=== PATIENT | female | born 1955 | race Hispanic/Latino ===

== ENCOUNTER 2020-06-17 18:30 | Emergency (ER) | payer OTHER ==
--- OUTSIDE RECORDS SUMMARY | 2020-06-17 18:32 | XMS REPORT | Continuity of Care Document ---
:1955 Author Organization [facility] t Address [address] [place] [address] Care Team Providers Name Role Phone TEJAS Attending Clinician Unavailable DR PITA Attending Clinician Unavailable MONA Attending Clinician Unavailable DR FELIPE Attending Clinician Unavailable DR PITA Admitting Clinician Unavailable MONA Admitting Clinician Unavailable DR FELIPE Admitting Clinician Unavailable Problems This patient has no known problems. Allergies, Adverse Reactions, Alerts This patient has no known allergies or adverse reactions. Medications This patient has no known medications. Procedures This patient has no known procedures. Encounters Start End Encounter Admission Attending Care Care Encounter Source Date/Time Date/Time Type Type Clinicians Facility Department ID 2020-03-09 2020-03-09 Outpatient [facility] [id number] Access 08:52:00 08:52:00 [facility] 2020-03-03 2020-03-03 Outpatient [facility] [id number] Access 11:42:00 11:42:00 [facility] 2020-02-24 2020-02-24 Outpatient [facility] [id number] Access 09:45:00 09:45:00 [facility] 2020-01-21 2020-01-21 Outpatient [facility] [id number] Access 09:50:00 09:50:00 [facility] 2020-01-13 2020-01-13 [facility] [id number] Access 13:39:00 13:39:00 [facility] 2018-11-01 2018-11-01 Outpatient E [facility] [id number] [place] 00:19:00 00:41:00 [facility] 2018-10-29 2018-10-29 Outpatient Florentino DUNN [facility] RAD [id number] [place] 12:30:00 23:59:00 [facility] 2018-05-16 2018-05-16 Outpatient Florentino DUNN [facility] RAD [id number] [place] 09:54:00 23:59:00 [facility] 2018-02-07 2018-02-07 Outpatient Jag WANG [facility] ECC [id number] [place] 15:43:00 17:40:00 [facility] Results Test Description Test Time Test Comments Results Result [facility] e Comments XR SHOULDER RIGHT 2018-10-29 Right shoulder, 3 3 VIEWS 13:09:19 viewsLocation Code: [id number] HISTORY: [id number]: OsteoarthritisCOMMENTS: AP views in internal and external rotation along with a transscapularY view of the the right shoulder were obtained. There is no acute fracture ormalalignment. Mild glenohumeral and acromioclavicular arthrosis noted. Surgicalclips in the right axilla. The soft tissues are otherwise unremarkable.IMPRESSION: No acute abnormality. Mild arthrosis. XR SPINE LUMBAR 2018-05-16 HISTORY: Low back AP & LAT 10:44:19 painLocation code: D4EXAM: LUMBAR SPINE, 3 VIEWS.COMPARISON: NoneFINDINGS: Five nonrib-bearing lumbar vertebrae are identified. No acutefracture, posttraumatic subluxation, osteolytic or osteoblastic lesion.Moderate diffuse spondylosis and mild diffuse facet joint arthropathy arepresent. Multilevel disc space narrowing is seen, most prominent at the L4-5level. No spondylolysis or spondylolisthesis. Minor dextroscoliosis could bepositional.IMPRESSION: Degenerative disc disease, spondylosis, and facet jointarthropathy. No acute bony abnormality. XR SHOULDER RIGHT 2018-05-16 HISTORY: Female, 63 years 2 VIEWS 10:42:55 of age. PAINLocation code: D4EXAM: RIGHT SHOULDER, 3 VIEWS.COMPARISON: NoneFINDINGS: Mild chronic arthritis is seen at the glenohumeral andacromioclavicular joints manifest by joint space narrowing and marginalspurring. There is no acute fracture or dislocation. No osteolytic orosteoblastic lesions. Incidental note made of surgical clips in the rightaxilla.IMPRESSION: Mild arthritis. No acute bony abnormalities. XR KNEE RIGHT 3 2018-05-16 HISTORY: Female, 63 years VIEWS 10:41:28 of age. KNEE PAINLocation code: D4EXAM: RIGHT KNEE, 3 VIEWSCOMPARISON: NoneFINDINGS: No significant soft tissue swelling, joint effusion, or arthropathy.No acute fracture, dislocation, osteolytic or osteoblastic lesion.IMPRESSION: Normal right knee x-rays. TROPONIN I i-STAT OW 2018-02-07 17:01:00 Test Item Value Reference Range Interpretation Comme nts TROPONIN I (test code = A84) 0.000 ng/mL 0.000-0.045 CHEM8+ i-STAT OW2018-02-07 16:44:00 Test Item Value Reference Range Interpretation Comments SODIUM (test code = BREN) 139 mmol/L 138-146 POTASSIUM (test code = KI) 3.8 mmol/L 3.5-4.9 CHLORIDE (test code = CLI) 101 mmol/L 98-109 CA IONIZED (test code = ICAI) 1.20 mmol/L 1.12-1.32 GLUCOSE (test code = GLUI) 212 mg/dL 75-100 H TCO2 (test code = TCO2) 27 mmol/L 24-29 BUN (test code = BUN1) 15 mg/dL 8-26 CREATININE (test code = CREAI) 0.6 mg/dL 0.6-1.3 ANION GAP (test code = GANG) 16.0 mmol/L HGB (test code = MHB) 13.3 g/dL 12.0-17.0 HCT (test code = MHCT) 39.0 % 38.0-51.0 CBC (INCLUDES AUTOMATED DIFFERENTIAL) *2018-02-07 16:43:00 Test Item Value Reference Range Interpretation Comments WBC (test code = WBC) 6.3 10\S\3/uL 4.5-11.0 RBC (test code = RBC) 4.22 10\S\6/uL 4.20-5.60 HGB (test code = HBG) 13.4 g/dL 12.0-15.5 HCT (test code = HCT) 39.3 % 35.0-44.0 MCV (test code = MCV) 93.1 fL 81.0-99.0 MCH (test code = MCH) 31.8 pg 27.0-31.0 H MCHC (test code = MCHC) 34.1 g/dL 32.0-36.0 RDW (test code = RDW) 12.4 % 11.5-14.5 PLT (test code = PLT) 224 10\S\3/uL 130-400 MPV (test code = OMPV) 7.4 fL 6.2-10.2 NEUTROP # (test code = NE#) 4.3 10\S\3/uL 1.6-8.0 LYMPH # (test code = LY#) 1.6 10\S\3/uL 1.1-3.5 MID # (test code = GMID#) 0.4 10\S\3/uL 0.0-1.1 GRA % (test code = GRA%) 68.7 % 35.0-73.0 LYMPH % (test code = GLY%) 24.9 % 20.0-55.0 MID % (test code = GMID%) 6.4 % 0.0-10.0
[2020-06-17] MEDS ORDERED: MECLIZINE HCL 12.5 MG TAB ONE (22:04)
[2020-06-17 22:13] LABS: ALT/SGPT 31 U/L (12-78); AST/SGOT 13 U/L (15-37); Albumin 4.1 g/dL (3.4-5.0); Alkaline Phosphatase 125 U/L (45-117); BUN Blood Urea Nitrogen 18 mg/dL (7-18); Bicarbonate 25 mmol/L (21-32); Bilirubin Direct < 0.1 mg/dL (0-0.2); Bilirubin Total 0.3 mg/dL (0.2-1.0); Glucose Level 144 mg/dL (74-106); Magnesium 1.9 mg/dL (1.8-2.4); NT PRO-BNP 40 pg/mL (<125); Potassium 3.9 mmol/L (3.5-5.1); Protein, Total 8.1 g/dL (6.4-8.2); Sodium Level 140 mmol/L (136-145); Troponin (Emerg Dept Use Only) < 0.02 ng/mL (0.0-0.045)
[2020-06-17 22:14] LABS: Absolute Lymphocytes (CBC) 2.3 K/uL (0.7-4.9); Basophils % 0.8 % (0-1.3); Hematocrit 37.6 % (36.0-45.0); Lymphocytes % 30.2 % (15.3-44.8); MPV 8.4 fL (7.6-11.3); RBC Red Blood Cell Count 4.17 M/uL (3.86-4.86)
[2020-06-17 22:20] LABS: Protime INR 0.87
--- NOTE | 2020-06-17 23:42 | ER ---
Nurse's Notes [facility] Name: Andreina Cotto Age: 65 yrs Sex: Female : 1955 Arrival Date: 06/17/2020 Time: 18:32 Bed 16 Private MD: Diagnosis: Dizziness and giddiness Presentation: 06/17 19:03 Chief complaint: Patient states: Have not been feeling right. Been dizzy for about 4 ca1 days. Had a bad episode last night , I thought I was going to faint. Coronavirus screen: Client denies travel out of the [place] in the last 14 days. At this time, the client does not indicate any symptoms associated with coronavirus-19. Ebola Screen: Patient negative for fever greater than or equal to 101.5 degrees Fahrenheit, and additional compatible Ebola Virus Disease symptoms Patient denies exposure to infectious person. Patient denies travel to an Ebola-affected area in the 21 days before illness onset. No symptoms or risks identified at this time. Initial Sepsis Screen: Does the patient meet any 2 criteria? No. Patient's initial sepsis screen is negative. Does the patient have a suspected source of infection? No. Patient's initial sepsis screen is negative. Risk Assessment: Do you want to hurt yourself or someone else? Patient reports no desire to harm self or others. Onset of symptoms was June 17, 2020. 19:03 Method Of Arrival: Ambulatory ca1 19:03 Acuity: RAFY 3 ca1 Historical: - Allergies: 19:07 No Known Allergies; ca1 - Home Meds: 19:07 Metformin Oral [Active]; Lisinopril Oral [Active]; amlodipine oral [Active]; ca1 - PMHx: 19:07 Hypertension; Diabetes - NIDDM; ca1 - PSHx: 19:07 ; Cholecystectomy; ca1 - Immunization history:: Pneumococcal vaccine is not up to date, Flu vaccine is not up to date. - Social history:: Smoking status: Patient denies any tobacco usage or history of. Screenin:53 Abuse screen: Denies threats or abuse. Nutritional screening: No deficits noted. fu Tuberculosis screening: No symptoms or risk factors identified. Fall Risk None identified. Assessment: 20:30 General: Appears in no apparent distress. Behavior is calm, cooperative, appropriate fu for age, Denies fever, feeling ill, fatigue, chills. Pain: Denies pain. Neuro: Level of Consciousness is awake, alert, obeys commands, Oriented to person, place, time, situation, Moves all extremities. Gait is steady, Speech is normal, Facial symmetry appears normal, Reports dizziness. Cardiovascular: Denies chest pain, nausea, vomiting. Respiratory: Airway is patent Respiratory effort is even, unlabored, Respiratory pattern is regular. GI: No signs and/or symptoms were reported involving the gastrointestinal system. : No signs and/or symptoms were reported regarding the genitourinary system. EENT: No signs and/or symptoms were reported regarding the EENT system. Derm: Skin is intact. 22:10 Reassessment: Patient wanting to take 25mg of Meclizine instead of 50mg, PA notified. fu 06/18 00:00 Reassessment: Patient and/or family updated on plan of care and expected duration. Pain fu level reassessed. Patient is alert, oriented x 3, equal unlabored respirations, skin warm/dry/pink. Vital Signs: 06/17 19:03 BP 178 / 95; Pulse 103; Resp 16 S; Temp 98.8(TE); Pulse Ox 99% on R/A; Weight 72.12 kg ca1 (R); Height 5 ft. 3 in. (160.02 cm) (R); Pain 0/10; 21:30 BP 156 / 95; Pulse 88; Resp 18; Pulse Ox 96% on R/A; Pain 0/10; fu 22:30 BP 148 / 80; Pulse 91; Resp 20; Pulse Ox 96% on R/A; Pain 0/10; fu 06/18 00:00 Pulse 91; Resp 21; Pulse Ox 98% on R/A; Pain 0/10; fu 06/17 19:03 Body Mass Index 28.17 (72.12 kg, 160.02 cm) ca1 ED Course: 06/17 18:32 Patient arrived in ED. as 19:05 Triage completed. ca1 19:07 Arm band placed on right wrist. ca1 21:12 Chacorta Cortez PA is PHCP. [place] 21:12 Patel Mohan MD is Attending Physician. [facility] 21:24 Tahir Lara, LAKIA is Primary Nurse. fu 21:35 Inserted saline lock: 20 gauge in left forearm, using aseptic technique. Blood fu collected. 21:40 Basic Metabolic Panel Sent. fu 21:40 Troponin (emerg Dept Use Only) Sent. fu 21:40 Basic Metabolic Panel Sent. fu 21:40 CBC with Diff Sent. fu 21:40 LFT's Sent. fu 21:40 Magnesium Sent. fu 21:40 NT PRO-BNP Sent. fu 21:41 PT-INR Sent. fu 21:59 CT Head Brain wo Cont In Process Unspecified. EDMS 21:59 CT Head Angio In Process Unspecified. EDMS 21:59 CT Neck Angio In Process Unspecified. EDMS 21:59 XRAY Chest (1 view) In Process Unspecified. EDMS 22:54 Patient has correct armband on for positive identification. Placed in gown. Bed in low fu position. Side rails up X 1. radiation monitor on. Pulse ox on. NIBP on. 23:41 Benito Barajas MD is Referral Physician. [facility] 06/18 00:20 IV discontinued, bleeding controlled, Pressure dressing applied. fu 00:20 No provider procedures requiring assistance completed. fu Administered Medications: 06/17 22:10 Drug: Meclizine 25 mg Route: PO; fu 22:52 Follow up: Response: No adverse reaction fu Outcome: 23:41 Discharge ordered by MD. [facility] 06/18 00:20 Discharged to home via wheelchair. fu Condition: stable Discharge instructions given to patient, Instructed on discharge instructions, follow up and referral plans. Demonstrated understanding of instructions, follow-up care, Prescriptions given X 1. 00:33 Patient left the ED. fu Signatures: Dispatcher [employer] EDKY Chacorta Cortez PA PA jmm Martinez, Amelia as Umadhay, Felix, RN RN Onelia Martin RN RN ca1
--- NOTE | 2020-06-17 23:42 | EDPHYS ---
Physician Documentation [facility] Name: Andreina Cotto Age: 65 yrs Sex: Female : 1955 Arrival Date: 06/17/2020 Time: 18:32 Bed 16 Private MD: ALFREDO Physician Patel Mohan HPI: 06/17 21:27 This 65 yrs old Female presents to ER via Ambulatory with complaints of jmm Dizziness. 21:27 The patient presents with dizziness, sense of spinning. Onset: The symptoms/episode jmm began/occurred acutely, 4 day(s) ago. Modifying factors: The symptoms are alleviated by holding head still, lying down, the symptoms are aggravated by movement of head, standing up, changing position. Associated signs and symptoms: Pertinent negatives: palpitations, shortness of breath, vomiting. The patient has not experienced similar symptoms in the past. Historical: - Allergies: 19:07 No Known Allergies; ca1 - Home Meds: 19:07 Metformin Oral [Active]; Lisinopril Oral [Active]; amlodipine oral [Active]; ca1 - PMHx: 19:07 Hypertension; Diabetes - NIDDM; ca1 - PSHx: 19:07 ; Cholecystectomy; ca1 - Immunization history:: Pneumococcal vaccine is not up to date, Flu vaccine is not up to date. - Social history:: Smoking status: Patient denies any tobacco usage or history of. ROS: 21:27 Constitutional: Negative for fever, chills, and weight loss, Cardiovascular: Negative jmm for chest pain, palpitations, and edema, Respiratory: Negative for shortness of breath, cough, wheezing, and pleuritic chest pain. 21:27 Neuro: Positive for dizziness. 21:27 All other systems are negative. Exam: 21:27 Constitutional: This is a well developed, well nourished patient who is awake, alert, jmm and in no acute distress. Head/Face: atraumatic. 21:27 ENT: Moist Mucus Membranes Neck: Trachea midline, Supple Chest/axilla: Normal chest wall appearance and motion. Cardiovascular: Regular rate and rhythm. No edema appreciated Respiratory: Normal respirations, no respiratory distress appreciated Abdomen/GI: Non distended, soft Back: Normal ROM Skin: General appearance color normal MS/ Extremity: Moves all extremities, no obvious deformities appreciated, no edema noted to the lower extremities 21:27 Eyes: Nystagmus: nystagmus with fast component noted, bilaterally. 21:27 Neuro: Orientation: is normal, Mentation: is normal, Memory: is normal, Cerebellar function: normal finger to nose testing, heel to potts testing is normal. 21:27 Psych: Behavior/mood is pleasant, cooperative. Vital Signs: 19:03 BP 178 / 95; Pulse 103; Resp 16 S; Temp 98.8(TE); Pulse Ox 99% on R/A; Weight 72.12 kg ca1 (R); Height 5 ft. 3 in. (160.02 cm) (R); Pain 0/10; 21:30 BP 156 / 95; Pulse 88; Resp 18; Pulse Ox 96% on R/A; Pain 0/10; fu 22:30 BP 148 / 80; Pulse 91; Resp 20; Pulse Ox 96% on R/A; Pain 0/10; fu 06/18 00:00 Pulse 91; Resp 21; Pulse Ox 98% on R/A; Pain 0/10; fu 06/17 19:03 Body Mass Index 28.17 (72.12 kg, 160.02 cm) ca1 MDM: 06/17 21:14 Patient medically screened. gloria 23:39 Data reviewed: vital signs, nurses notes. Counseling: I had a detailed discussion with beverley the patient and/or guardian regarding: the historical points, exam findings, and any diagnostic results supporting the discharge/admit diagnosis, lab results, radiology results, the need for outpatient follow up, to return to the emergency department if symptoms worsen or persist or if there are any questions or concerns that arise at home. ED course: Normal cerebellar exam, ct and cta negative. Dizziness is relieved. Patient advised to follow up with neuro and is otherwise given strict return precautions. patient understood and agrees with the plan of care. . 06/17 21: Order name: Basic Metabolic Panel [facility] 06/17 21: Order name: CBC with Diff; Complete Time: 22:35 [facility] 06/17 20: Order name: LFT's; Complete Time: 22:21 [facility] 06/17 20: Order name: Magnesium; Complete Time: 22:21 [facility] 06/17 21:25 Order name: NT PRO-BNP; Complete Time: 22:21 [facility] 06/17 21:25 Order name: PT-INR; Complete Time: 22:35 [facility] 06/17 19:08 Order name: EKG; Complete Time: 19:09 [facility] 06/17 21:25 Order name: Troponin (emerg Dept Use Only); Complete Time: 22:21 [facility] 06/17 21:25 Order name: XRAY Chest (1 view) [facility] 06/17 21:25 Order name: CT Head Brain wo Cont [facility] 06/17 21:25 Order name: CT Head Angio [facility] 06/17 21:25 Order name: CT Neck Angio [facility] 06/17 21:26 Order name: Basic Metabolic Panel; Complete Time: 22:21 [facility] 06/17 19:08 Order name: EKG - Nurse/Tech; Complete Time: 19:08 [facility] 06/17 21:25 Order name: EKG; Complete Time: 21:26 [facility] 06/17 21:25 Order name: Cardiac monitoring; Complete Time: 21:39 [facility] 06/17 21:25 Order name: EKG - Nurse/Tech; Complete Time: 21:41 [facility] 06/17 21:25 Order name: IV Saline Lock; Complete Time: 21:41 [facility] 06/17 21:25 Order name: Labs collected and sent; Complete Time: 21:41 [facility] 06/17 21:25 Order name: O2 Per Protocol; Complete Time: :41 [facility] 06/17 21:25 Order name: O2 Sat Monitoring; Complete Time: :41 [facility] Administered Medications: 22:10 Drug: Meclizine 25 mg Route: PO; fu 22:52 Follow up: Response: No adverse reaction fu Disposition: 06/18 06:46 Co-signature as Attending Physician, Patel Mohan MD I agree with the assessment and gloria plan of care. Disposition: 06/17/20 23:41 Discharged to Home. Impression: Dizziness and giddiness. - Condition is Stable. - Discharge Instructions: Dizziness. - Prescriptions for Meclizine 25 mg Oral Tablet - take 1 tablet by ORAL route every 8 hours As needed; 30 tablet. - Medication Reconciliation Form, Thank You Letter, Antibiotic Education, Prescription Opioid Use form. - Follow up: Benito Barajas MD; When: 2 - 3 days; Reason: Recheck today's complaints, Continuance of care, Re-evaluation by your physician. Signatures: Dispatcher [employer] Patel Walker MD MD cha Mickail, Joel, PA PA jmm Umadhay, Felix, Onelia Garcia RN, RN RN ca1 Corrections: (The following items were deleted from the chart) 00:33 06/17 23:41 06/17/2020 23:41 Discharged to Home. Impression: Dizziness and giddiness. fu Condition is Stable. Forms are Medication Reconciliation Form, Thank You Letter, Antibiotic Education, Prescription Opioid Use. Follow up: Benito Barajas; When: 2 - 3 days; Reason: Recheck today's complaints, Continuance of care, Re-evaluation by your physician. beverley
[2020-06-18 03:02] VITALS: TEMP 98.8
[2020-06-18 03:03] VITALS: O2SAT 96
[2020-06-18 03:05] VITALS: BP 148/80
--- NOTE | 2020-06-18 05:36 | EKG ---
Test Date: 2020-06-17 Test Time: 19:09:43 Law Librarian: BERTA MEASUREMENT RESULTS: Intervals: Rate: 95 NJ: 138 QRSD: 88 QT: 356 QTc: 447 Spring: P: 56 NJ: 138 QRS: 99 T: 77 INTERPRETIVE STATEMENTS: Normal sinus rhythm Rightward axis Borderline ECG No previous ECG available for comparison Electronically Signed On 06-18-20 05:35:18 SENIOR PRINCIPAL by Beck Moise
--- NOTE | 2020-06-18 07:34 | RAD REPORT ---
EXAM DESCRIPTION: RAD - Chest Single View - 06/17/2020 10:00 pm CLINICAL HISTORY: Dizzinesshypertension COMPARISON: None TECHNIQUE: AP portable chest image was obtained 06/17/2020 10:00 pm . FINDINGS: Lungs are clear. Heart and vasculature are normal. No measurable pleural effusion and no p neumothorax. No acute bony abnormality seen. No acute aortic findings suspected. IMPRESSION: No acute cardiopulmonary process.
--- NOTE | 2020-06-18 13:21 | RAD REPORT ---
EXAM DESCRIPTION: CT - Head Brain Wo Cont - 06/18/2020 7:04 am RadLex: CT HEAD WITHOUT IV CONTRAST CLINICAL HISTORY: DIZZINESS. TECHNIQUE: Axial, coronal, and sagittal images through the brain were performed in the absence of in travenous contrast. This exam was performed according to our departmental dose-optimization program w hich includes use of Automated Exposure Control, adjustment of the mA and/or kV according to patient size and/or use of iterative reconstruction technique. COMPARISON: None. FINDINGS: The brain parenchyma appears unremarkable. There is no intra-axial or extra-axial bleed se en. There is no mass or mass effect. The ventricles are normal in size shape and configuration. The o rbital contents appear unremarkable. Dense atherosclerotic calcification in the intracranial portion of the distal left vertebral artery. The visualized paranasal sinuses and mastoid air cells are patent. No fracture is identified. IMPRESSION: No acute intracranial abnormality identified. Electronically signed by: Delmis Rincon MD 06/17/2020 10:15 PM MARKETING ANALYTICS ANALYST Due to temporary technical issues with the PACS/Fluency reporting system, reports are being signed by the in house radiologists without review as a courtesy to insure prompt reporting. The interpreting radiologist is fully responsible for the content of the report.
--- NOTE | 2020-06-18 13:31 | RAD REPORT ---
EXAM DESCRIPTION: CT - Head angio - 06/18/2020 7:04 am CLINICAL HISTORY: 65-year-old female with dizziness. COMPARISON: None. TECHNIQUE: CT angiography of the head and neck following dynamic bolus of intravenous contrast. MIP reformatted reconstructions were created. This exam was performed according to our departmental dose optimization program which includes use of automated exposure control, adjustment of the mA and/or kV according to patient size and/or use of iterative reconstruction technique. FINDINGS: CTA neck: Patent flow opacification of the aortic arch origin right brachiocephalic, left common carotid, and l eft subclavian arteries. The bilateral vertebral artery origins are normal. Patent flow opacification through the bilateral common carotid arteries, carotid bifurcations, cervic al internal/external carotid, and vertebral arteries. Variant anatomy of the LEFT vertebral artery or igin of the aortic arch. CTA brain: Patent flow opacification through anterior circulation (bilateral petrous/cavernous/supraclinoid inte rnal carotid arteries, anterior and middle cerebral arteries), posterior circulation (vertebral-basil ar, posterior-inferior cerebellar, anterior-inferior cerebellar, superior cerebellar, and posterior c erebral arteries), and distal intracranial vasculature. Patent flow opacification an incomplete [id number] with a patent anterior communicating artery and bilateral posterior communicating arteries. Normal superficial and deep intracranial venous drainage. No evidence of occlusive thrombus, dissection, or vascular malformation. IMPRESSION: 1. Patent enhancement of the intracranial circulation. 2. Patent enhancement of the cervical vasculature without significant stenosis by NASCET criteria. Electronically signed by: Saida Gonzalez MD 06/17/2020 10:33 PM AUTO DESIGN DETAILER Due to temporary technical issues with the PACS/Fluency reporting system, reports are being signed by the in house radiologists without review as a courtesy to insure prompt reporting. The interpreting radiologist is fully responsible for the content of the report.
--- NOTE | 2020-06-18 13:44 | RAD REPORT ---
EXAM DESCRIPTION: CT - Neck Angio - 06/18/2020 7:03 am CLINICAL HISTORY: 65-year-old female with dizziness. COMPARISON: None. TECHNIQUE: CT angiography of the head and neck following dynamic bolus of intravenous contrast. MIP reformatted reconstructions were created. This exam was performed according to our departmental dose optimization program which includes use of automated exposure control, adjustment of the mA and/or kV according to patient size and/or use of iterative reconstruction technique. FINDINGS: CTA neck: Patent flow opacification of the aortic arch origin right brachiocephalic, left common carotid, and l eft subclavian arteries. The bilateral vertebral artery origins are normal. Patent flow opacification through the bilateral common carotid arteries, carotid bifurcations, cervic al internal/external carotid, and vertebral arteries. Variant anatomy of the LEFT vertebral artery or igin of the aortic arch. CTA brain: Patent flow opacification through anterior circulation (bilateral petrous/cavernous/supraclinoid inte rnal carotid arteries, anterior and middle cerebral arteries), posterior circulation (vertebral-basil ar, posterior-inferior cerebellar, anterior-inferior cerebellar, superior cerebellar, and posterior c erebral arteries), and distal intracranial vasculature. Patent flow opacification an incomplete [id number] with a patent anterior communicating artery and bilateral posterior communicating arteries. Normal superficial and deep intracranial venous drainage. No evidence of occlusive thrombus, dissection, or vascular malformation. IMPRESSION: 1. Patent enhancement of the intracranial circulation. 2. Patent enhancement of the cervical vasculature without significant stenosis by NASCET criteria. Electronically signed by: Saida Gonzalez MD 06/17/2020 10:33 PM ONCOLOGY ACCOUNT SPECIALIST Due to temporary technical issues with the PACS/Fluency reporting system, reports are being signed by the in house radiologists without review as a courtesy to insure prompt reporting. The interpreting radiologist is fully responsible for the content of the report.
== END 2020-06-18 00:33 | disposition home or self-care (01) ==
LOC: ER 18:30
DX: R42 Dizziness and giddiness (principal); I10 Essential (primary) hypertension; E11.8 Type 2 diabetes mellitus with unspecified complications
CPT/HCPCS: 93005; 85025; 80048; 36415; 83735; 85610; 82565; 80076; 84484; 83880; 70450; 70496; 70498; 71045; 99284; Q9967

== ENCOUNTER 2020-09-09 17:35 | Emergency (ER) | payer OTHER ==
--- OUTSIDE RECORDS SUMMARY | 2020-09-09 17:56 | XMS REPORT | Continuity of Care Document ---
:1955 Author Organization [facility] t Address [address] [place] [address] Care Team Providers Name Role Phone LEMA Attending Clinician Unavailable TEJAS Attending Clinician Unavailable DR PITA Attending Clinician Unavailable MONA Attending Clinician Unavailable DR FELIPE Attending Clinician Unavailable PITA Admitting Clinician Unavailable DR PITA Admitting Clinician Unavailable MONA Admitting Clinician Unavailable DR FELIPE Admitting Clinician Unavailable Problems This patient has no known problems. Allergies, Adverse Reactions, Alerts This patient has no known allergies or adverse reactions. Social History Smoking Status Start Date Stop Date Source Never Smoker [facility] Medications Ordered Filled Start Stop Current Ordering Indication Dosage Frequency Signature Comments Components Source Medication Medication Date Date Medication? Clinician (SIG) Name Name meclizine meclizine No meclizine [facility] 25 mg 25 mg 25 mg da tablet TAKE tablet TAKE tablet Medical ONE (1) ONE (1) TAKE ONE Group TABLET(S) TABLET(S) (1) BY MOUTH BY MOUTH TABLET(S) EVERY EIGHT EVERY EIGHT BY MOUTH HOURS HOURS EVERY NEEDED. NEEDED. EIGHT HOURS NEEDED. metformin metformin No metformin [facility] 1,000 mg 1,000 mg 1,000 mg da tablet TAKE tablet TAKE tablet Medical ONE (1) ONE (1) TAKE ONE Group TABLET(S) TABLET(S) (1) BY MOUTH 2 BY MOUTH 2 TABLET(S) TIMES A DAY TIMES A DAY BY MOUTH 2 WITH THE WITH THE TIMES A MORNING AND MORNING AND DAY WITH THE EVENING THE EVENING THE MEALS. MEALS. MORNING AND THE EVENING MEALS. amlodipine amlodipine No amlodipine [facility] 10 mg 10 mg 10 mg da tablet TAKE tablet TAKE tablet Medical ONE (1) ONE (1) TAKE ONE Group TABLET(S) TABLET(S) (1) BY MOUTH BY MOUTH TABLET(S) ONCE A DAY. ONCE A DAY. BY MOUTH ONCE A DAY. atorvastati atorvastati No atorvastat [facility] n 20 mg n 20 mg in 20 mg da tablet TAKE tablet TAKE tablet Medical ONE (1) ONE (1) TAKE ONE Group TABLET(S) TABLET(S) (1) BY MOUTH BY MOUTH TABLET(S) DAILY FOR DAILY FOR BY MOUTH CHLOESTEROL CHLOESTEROL DAILY FOR . . CHLOESTERO L. lisinopril lisinopril No lisinopril [facility] 40 mg 40 mg 40 mg da tablet TAKE tablet TAKE tablet Medical ONE (1) ONE (1) TAKE ONE Group TABLET(S) TABLET(S) (1) BY MOUTH BY MOUTH TABLET(S) ONCE A DAY. ONCE A DAY. BY MOUTH ONCE A DAY. Immunizations Ordered Immunization Filled Immunization Date Status Commen ts Source Name Name Influenza vaccine, Influenza vaccine, 2020-07-06 Completed [facility] quadrivalent, quadrivalent, 13:04:23 [facility] adjuvanted adjuvanted Vital Signs Vital Name Observation Time Observation Value Comments Source BP Diastolic 2020-07-06 00:00:00 95 mm[facility]Hg[facility] Height 2020-07-06 00:00:00 63 [in_i] [facility] BMI (Body Mass 2020-07-06 00:00:00 28 kg/m2 [facility] stucc[employer] plaste[employer] Medical Index) Group BP Systolic 2020-07-06 00:00:00 172 mm[Hg] [facility] Body Weight 2020-07-06 00:00:00 2528 [oz_av] [facility] Procedures Procedure Date / Time Performed Performing Clinician Dominic cross Amputation of Finger of [facility] Procedure on [facility] Section [facility] Plan of Care Planned Activity Planned Date Details Comments Source Diagnostic Test 2020-07-06 PPD (purified [facility] P[facility] 00:00:00 protein Group derivative), skin test [code = PPD (purified protein derivative), skin test] Diagnostic Test 2020-07-06 varicella-zoster [facility] Pending 00:00:00 igm, serum [code = Group varicella-zoster igm, serum] Diagnostic Test 2020-07-06 varicella zoster [facility] Pending 00:00:00 virus IgG Ab, Group qualitative, serum [code = varicella zoster virus IgG Ab, qualitative, serum] Instructions [facility] Encounters Start End Encounter Admission Attending Care Care Encounter Source Date/Time Date/Time Type Type Clinicians Facility Department ID 2020-07-27 Inpatient C PITA [facility] RAD [id number] [facility] 13:00:00 [facility] [place] 2020-07-06 2020-07-06 Chyna [facility] [place] - [id number] Mary Ellen batista 00:00:00 00:00:00 Rebekah Powell, Medical Medical SORTING MACHINE OPERATOR: [address] [facility] [address], [place] [address] , Ph. 2020-03-09 2020-03-09 Outpatient COLLIN LAZARO [facility] [id number] Access 08:52:00 08:52:00 [facility] 2020-03-03 2020-03-03 Outpatient COLLIN LAZARO [facility] [id number] Access 11:42:00 11:42:00 Health 2020-02-24 2020-02-24 Outpatient COLLIN LAZARO [facility] [id number] Access 09:45:00 09:45:00 [facility] 2020-01-21 2020-01-21 Outpatient COLLIN LAZARO [facility] [id number] Access 09:50:00 09:50:00 [facility] 2020-01-13 2020-01-13 Outpatient NURSE, [facility] [id number] Access 13:39:00 13:39:00 NURSE Health 2018-11-01 2018-11-01 Outpatient E LEMABRIGIDA Hyde [facility] ECC [id number] [facility] 00:19:00 00:41:00 [facility] [place] 2018-10-29 2018-10-29 Outpatient C MONA [facility] RAD [id number] [facility] 12:30:00 23:59:00 GAYTAMAGALY [facility] [place] 2018-08-27 2018-08-27 [facility] [id number] Access 00:00:00 00:00:00 H, PROVIDER Kentrell saez 2018-07-23 2018-07-23 Outpatient [facility] [id number] Access 00:00:00 00:00:00 H, PROVIDER Kentrell saez 2018-07-07 2018-07-07 Outpatient [facility] [id number] Access 00:00:00 00:00:00 H, PROVIDER Kentrell saez 2018-07-02 2018-07-02 Outpatient [facility] [id number] Access 00:00:00 00:00:00 H, PROVIDER Kentrell saez 2018-06-25 2018-06-25 Outpatient [facility] [id number] Access 00:00:00 00:00:00 H, PROVIDER Kentrell saez 2018-05-28 2018-05-28 Outpatient [facility] [id number] Access 00:00:00 00:00:00 H, PROVIDER Kentrell saez 2018-05-23 2018-05-23 Outpatient [facility] [id number] Access 00:00:00 00:00:00 H, PROVIDER Kentrell saez 2018-05-21 2018-05-21 Outpatient [facility] [id number] Access 00:00:00 00:00:00 H, PROVIDER Kentrell saez 2018-05-16 2018-05-16 Outpatient Florentino DUNN [facility] RAD [id number] [facility] 09:54:00 23:59:00 [facility] 2018-05-16 2018-05-16 Outpatient [facility] [id number] Access 00:00:00 00:00:00 H, PROVIDER Kentrell saez 2018-05-15 2018-05-15 Outpatient [facility] [id number] Access 00:00:00 00:00:00 H, PROVIDER Kentrell saez 2018-05-08 2018-05-08 Outpatient [facility] [id number] Access 00:00:00 00:00:00 H, PROVIDER Kentrell saez 2018-05-04 2018-05-04 Outpatient [facility] [id number] Access 00:00:00 00:00:00 H, PROVIDER Kentrell saez 2018-04-30 2018-04-30 Outpatient [facility] [id number] Access 00:00:00 00:00:00 H, PROVIDER Kentrell saez 2018-04-23 2018-04-23 [facility] [id number] Access 00:00:00 00:00:00 H, PROVIDER Kentrell saez 2018-04-04 2018-04-04 Outpatient [facility] [id number] Access 00:00:00 00:00:00 H, PROVIDER Kentrell saez 2018-03-09 2018-03-09 Outpatient [facility] [id number] Access 00:00:00 00:00:00 H, PROVIDER Kentrell saez 2018-02-07 2018-02-07 Outpatient E , [facility] [id number] [facility] 15:43:00 17:40:00 [facility] 2017-12-01 2017-12-01 [facility] [id number] Access 00:00:00 00:00:00 H, PROVIDER Kentrell saez 2017-03-27 2017-03-27 [facility] [id number] Access 00:00:00 00:00:00 H, PROVIDER Kentrell saez 2017-03-24 2017-03-24 Outpatient [facility] [id number] Access 00:00:00 00:00:00 H, PROVIDER Kentrell saez 2017-02-22 2017-02-22 Outpatient [facility] [id number] Access 00:00:00 00:00:00 H, PROVIDER Kentrell saez 2017-01-09 2017-01-09 Outpatient [facility] [id number] Access 00:00:00 00:00:00 H, PROVIDER Kentrell saez 2016-11-22 2016-11-22 Outpatient [facility] [id number] Access 00:00:00 00:00:00 H, PROVIDER Kentrell saez 2016-10-13 2016-10-13 Outpatient [facility] [id number] Access 00:00:00 00:00:00 H, PROVIDER Kentrell saez 2016-10-12 2016-10-12 Outpatient [facility] [id number] Access 00:00:00 00:00:00 H, PROVIDER Kentrell saez 2016-08-26 2016-08-26 Outpatient [facility] [id number] Access 00:00:00 00:00:00 H, PROVIDER Kentrell saez 2016-06-20 2016-06-20 Outpatient [facility] [id number] Access 00:00:00 00:00:00 H, PROVIDER Kentrell saez 2016-06-17 2016-06-17 Outpatient [facility] [id number] Access 00:00:00 00:00:00 H, PROVIDER Kentrell saez 2016-06-16 2016-06-16 Outpatient [facility] [id number] Access 00:00:00 00:00:00 H, PROVIDER Kentrell saez 2016-06-15 2016-06-15 Outpatient [facility] [id number] Access 00:00:00 00:00:00 H, PROVIDER Kentrell saez 2015-05-12 2015-05-12 Outpatient [facility] [id number] Access 00:00:00 00:00:00 H, PROVIDER Kentrell saez 2015-05-07 2015-05-07 Outpatient [facility] [id number] Access 00:00:00 00:00:00 H, PROVIDER Kentrell saez 2015-05-04 2015-05-04 [facility] [id number] Access 00:00:00 00:00:00 H, PROVIDER Kentrell saez 2015-04-21 2015-04-21 [facility] [id number] Access 00:00:00 00:00:00 H, PROVIDER Kentrell saez 2015-04-13 2015-04-13 Outpatient [facility] [id number] Access 00:00:00 00:00:00 H, PROVIDER Kentrell saez 2015-04-10 2015-04-10 Outpatient [facility] [id number] Access 00:00:00 00:00:00 H, PROVIDER Kentrell saez 2015-04-01 2015-04-01 Outpatient [facility] [id number] Access 00:00:00 00:00:00 H, PROVIDER Kentrell saez 2014-07-14 2014-07-14 Outpatient [facility] [id number] Access 00:00:00 00:00:00 H, PROVIDER Kentrell saez 2014-07-11 2014-07-11 Outpatient [facility] [id number] Access 00:00:00 00:00:00 H, PROVIDER Kentrell saez 2014-06-25 2014-06-25 Outpatient [facility] [id number] Access 00:00:00 00:00:00 H, PROVIDER Kentrell saez 2014-06-24 2014-06-24 Outpatient [facility] [id number] Access 00:00:00 00:00:00 H, PROVIDER Kentrell saez 2014-04-03 2014-04-03 Outpatient [facility] [id number] Access 00:00:00 00:00:00 H, PROVIDER Kentrell saez 2014-01-02 2014-01-02 Outpatient [facility] [id number] Access 00:00:00 00:00:00 H, PROVIDER Kentrell saez 2013-08-21 2013-08-21 Outpatient [facility] [id number] Access 00:00:00 00:00:00 H, PROVIDER Kentrell saez Results Test Description Test Time Test Comments Results Result Sourc e Comments XR SHOULDER RIGHT 2018-10-29 Right shoulder, 3 3 VIEWS 13:09:19 viewsLocation Code: [id number] HISTORY: [id number]: OsteoarthritisCOMMENTS: AP views in internal and external [...]
[2020-09-09] MEDS ORDERED: ACETAMINOPHEN 325 MG TABLET ONE (18:33)
[2020-09-09] MEDS ORDERED: AMLODIPINE 10 MG TAB ONE (18:34)
--- NOTE | 2020-09-09 18:43 | RAD REPORT ---
EXAM DESCRIPTION: CT - Head Brain Wo Cont - 09/09/2020 6:25 pm CLINICAL HISTORY: left facial droop Headache, drowsiness COMPARISON: Head Brain Wo Cont dated 06/17/2020; Head angio dated 06/17/2020 TECHNIQUE: All CT scans are performed using dose optimization technique as appropriate and may inclu de automated exposure control or mA/KV adjustment according to patient size. FINDINGS: No intracranial hemorrhage, hydrocephalus or extra-axial fluid collection.No areas of brai n edema or evidence of midline shift. The paranasal sinuses and mastoids are clear. The calvarium is intact. Left vertebral artery is ather osclerotic. IMPRESSION: No acute intracranial abnormality.
--- NOTE | 2020-09-09 19:41 | EDPHYS ---
Physician Documentation [facility] Name: Andreina Cotto Age: 65 yrs Sex: Female : 1955 Arrival Date: 09/09/2020 Time: 17:36 Bed 5 Private MD: ED Physician Warner Robert HPI: 09/09 18:00 This 65 yrs old Female presents to ER via Ambulatory with complaints of Facial jmm Droop, Eye Problem. 18:00 The patient presents to the emergency department with facial droop. Onset: The jmm symptoms/episode began/occurred 1 day(s) ago. Associated signs and symptoms: Pertinent negatives: unilateral weakness. Current symptoms:. This is a 65 year old female with a history of DM, HTN that presents to the ED with complaints of left sided facial droop beginning yesterday. Denies unilateral weakness. . Historical: - Allergies: 17:44 No Known Allergies; ll1 - PMHx: 17:44 Diabetes - NIDDM; Hypertension; ll1 - PSHx: 17:44 ; Cholecystectomy; ll1 - Immunization history:: Flu vaccine is up to date. - Social history:: Smoking status: Patient denies any tobacco usage or history of. ROS: 18:00 Constitutional: Negative for fever, chills, and weight loss, Cardiovascular: Negative jmm for chest pain, palpitations, and edema, Respiratory: Negative for shortness of breath, cough, wheezing, and pleuritic chest pain. 18:00 Neuro: Positive for headache. 18:00 All other systems are negative. Exam: 18:00 Constitutional: This is a well developed, well nourished patient who is awake, alert, jmm and in no acute distress. Head/Face: atraumatic. Eyes: EOMI, no conjunctival erythema appreciated ENT: Moist Mucus Membranes Neck: Trachea midline, Supple Chest/axilla: Normal chest wall appearance and motion. Cardiovascular: Regular rate and rhythm. No edema appreciated Respiratory: Normal respirations, no respiratory distress appreciated Abdomen/GI: Non distended, soft Back: Normal ROM Skin: General appearance color normal MS/ Extremity: Moves all extremities, no obvious deformities appreciated, no edema noted to the lower extremities 18:00 Psych: Behavior is normal, Mood is normal, Patient is cooperative and pleasant 18:00 Neuro: Orientation: is normal, Mentation: is normal, Memory: is normal, Cranial nerves: facial droop noted on left, with forehead involved. Cerebellar function: normal finger to nose testing, Gait: is steady. Vital Signs: 17:41 BP 208 / 127; Pulse 100; Resp 18; Temp 98.5; Pulse Ox 100% ; Weight 72.12 kg; Height 5 ll1 ft. 3 in. (160.02 cm); Pain 2/10; 18:24 BP 171 / 98; Pulse 93; Resp 17 S; Pulse Ox 100% on R/A; jd3 19:51 BP 123 / 75; Pulse 85; Resp 16; Pulse Ox 98% ; rr5 17:41 Body Mass Index 28.17 (72.12 kg, 160.02 cm) ll1 MDM: 18:00 Patient medically screened. [facility] 19:38 Data reviewed: vital signs, nurses notes. Counseling: I had a detailed discussion with beverley the patient and/or guardian regarding: the historical points, exam findings, and any diagnostic results supporting the discharge/admit diagnosis, radiology results, the need for outpatient follow up, to return to the emergency department if symptoms worsen or persist or if there are any questions or concerns that arise at home. 19:38 ED course: PE findings consistent with [place] Palsy. Advised to follow up with neuro and lobom otherwise given strict return precautions. . 09/09 18:02 Order name: CT Head Brain wo Cont [facility] 09/09 18:44 Order name: CT; Complete Time: 18:54 EDMS Administered Medications: 18:20 Drug: Tylenol 650 mg Route: PO; jd3 19:16 Follow up: Response: No adverse reaction jd3 18:20 Drug: amLODIPine 10 mg Route: PO; jd3 19:16 Follow up: Response: No adverse reaction jd3 Disposition: 09/10 07:19 Co-signature as Attending Physician, Warner Robert MD. rn Disposition: 09/09/20 19:41 Discharged to Home. Impression: Esquivel's palsy. - Condition is Stable. - Discharge Instructions: Esquivel Palsy, Adult. - Prescriptions for Prednisone 20 mg Oral Tablet - take 3 tablets by ORAL route once daily for 12 days Please take 3 tabs by mouth daily for 3 days, then 2 tabs by mouth daily for 3 days, then 1 tab by mouth daily for 3 days, and then 1/2 tab by mouth for 3 days; 20 tablet. Valtrex 1 g Oral Tablet - take 1 tablet by ORAL route every 8 hours for 7 days; 21 tablet. - Medication Reconciliation Form, Thank You Letter, Antibiotic Education, Prescription Opioid Use form. - Follow up: Private Physician; When: 2 - 3 days; Reason: Recheck today's complaints, Continuance of care, Re-evaluation by your physician. Signatures: Dispatcher [employer] EDMS Chacorta Cortez PA PA jmm Nieto, Roman, MD MD rn Davies, Jonathon, RN RN jd3 Jed Feliz RN RN rr5 Kevin Ibarra RN RN ll1 Corrections: (The following items were deleted from the chart) 09/09 19:56 19:41 09/09/2020 19:41 Discharged to Home. Impression: Esquivel's palsy. Condition is rr5 Stable. Forms are Medication Reconciliation Form, Thank You Letter, Antibiotic Education, Prescription Opioid Use. Follow up: Private Physician; When: 2 - 3 days; Reason: Recheck today's complaints, Continuance of care, Re-evaluation by your physician. beverley
--- NOTE | 2020-09-09 19:41 | ER ---
Nurse's Notes [facility] Name: Andreina Cotto Age: 65 yrs Sex: Female : 1955 Arrival Date: 09/09/2020 Time: 17:36 Bed 5 Private MD: Diagnosis: Esquivel's palsy Presentation: 09/09 17:41 Chief complaint: Patient states: L sided facial droop, L eye not closing fully since ll1 yesterday at 1700. No trouble walking. Coronavirus screen: Client denies travel out of the [place] in the last 14 days. At this time, the client does not indicate any symptoms associated with coronavirus-19. Ebola Screen: Patient denies travel to an Ebola-affected area in the 21 days before illness onset. An acute neurological deficit is present. The charge nurse has been notified. Initial Sepsis Screen: Does the patient meet any 2 criteria? HR > 90 bpm. No. Patient's initial sepsis screen is negative. Does the patient have a suspected source of infection? Yes: Other: ANDREW/L facial droop. Risk Assessment: Do you want to hurt yourself or someone else? Patient reports no desire to harm self or others. Onset of symptoms was September 08, 2020. 17:41 Method Of Arrival: Ambulatory ll1 17:41 Acuity: RAFY 2 ll1 Stroke Activation: Symptom onset > 6 hours Physician: Stroke Attending; Name: ; Notified At: ; Arrived At: Physician: Chief Stroke Resident; Name: ; Notified At: ; Arrived At: Physician: Stroke Resident; Name: ; Notified At: ; Arrived At: Physician: ED Attending; Name: ; Notified At: ; Arrived At: Physician: ED Resident; Name: ; Notified At: ; Arrived At: Historical: - Allergies: 17:44 No Known Allergies; ll1 - PMHx: 17:44 Diabetes - NIDDM; Hypertension; ll1 - PSHx: 17:44 ; Cholecystectomy; ll1 - Immunization history:: Flu vaccine is up to date. - Social history:: Smoking status: Patient denies any tobacco usage or history of. Screenin:23 Abuse screen: Denies threats or abuse. Nutritional screening: No deficits noted. jd3 Tuberculosis screening: No symptoms or risk factors identified. VAN Screening: Arm Drift: Patient shows no arm weakness. Patient is VAN negative. The patient has not been NPO before screening. The patient is currently on the following diet: regular The patient is alert, able to follow commands. The patient does not exhibit slurred or garbled speech The patient is not exhibiting difficulty speaking. The patient does not exhibit difficulty understanding words. The patient is able to swallow own secretions with no drooling or need for suction. Patient tolerated one teaspoon of water. No drooling, immediate coughing, gurgling, or clearing of the throat was noted. The patient tolerated 90mL of water. No drooling, immediate coughing, gurgling, or clearing of the throat was noted. The patient passed the bedside swallow screening. Oral medications may be given as ordered. Contact Physician for further diet orders. Provider notified of bedside swallow screening results: Chacorta EM. Fall Risk Ambulatory Aid- None/Bed Rest/Nurse Assist (0 pts). Gait- Normal/Bed Rest/Wheelchair (0 pts) Mental Status- Oriented to own ability (0 pts). Total Pearson Fall Scale indicates No Risk (0-24 pts). Assessment: 18:10 General: Appears in no apparent distress. comfortable, Behavior is calm, cooperative, jd3 appropriate for age. Pain: Complains of pain in head Quality of pain is described as aching, pressure. Neuro: Level of Consciousness is awake, alert, obeys commands, Oriented to person, place, time, situation, Tutoring Manager are equal bilaterally Moves all extremities. Full function Speech is normal, Facial droop on left, Intact Denies. Cardiovascular: Denies chest pain, Capillary refill < 3 seconds Patient's skin is warm and dry. Respiratory: Airway is patent Respiratory effort is even, unlabored, Respiratory pattern is regular, symmetrical, Denies cough, shortness of breath. GI: No signs and/or symptoms were reported involving the gastrointestinal system. : No signs and/or symptoms were reported regarding the genitourinary system. EENT: No signs and/or symptoms were reported regarding the EENT system. Derm: Skin is intact, Skin is dry, Skin is normal, Skin temperature is warm. Musculoskeletal: Circulation, motion, and sensation intact. Range of motion: intact in all extremities. 19:51 Reassessment: Patient appears in no apparent distress at this time. Patient is alert, rr5 oriented x 3, equal unlabored respirations, skin warm/dry/pink. discharge instruction given and explained without complaints made. Vital Signs: 17:41 BP 208 / 127; Pulse 100; Resp 18; Temp 98.5; Pulse Ox 100% ; Weight 72.12 kg; Height 5 ll1 ft. 3 in. (160.02 cm); Pain 2/10; 18:24 BP 171 / 98; Pulse 93; Resp 17 S; Pulse Ox 100% on R/A; jd3 19:51 BP 123 / 75; Pulse 85; Resp 16; Pulse Ox 98% ; rr5 17:41 Body Mass Index 28.17 (72.12 kg, 160.02 cm) ll1 ED Course: 17:36 Patient arrived in ED. am2 17:43 Triage completed. ll1 17:44 Arm band placed on. ll1 17:51 Chacorta Cortez PA is PHCP. [facility] 17:51 Warner Robert MD is Attending Physician. [facility] 18:11 Teodoro Hallman RN is Primary Nurse. jd3 18:24 Patient has correct armband on for positive identification. Placed in gown. Bed in low jd3 position. Call light in reach. Side rails up X 1. Pulse ox on. NIBP on. 19:05 Report given to report given to Martha DORMAN and Jed DORMAN. jd3 19:20 Primary Nurse role handed off by Teodoro Hallman RN jwendy 19:52 No provider procedures requiring assistance completed. Patient did not have IV access rr5 during this emergency room visit. Administered Medications: 18:20 Drug: Tylenol 650 mg Route: PO; jd3 19:16 Follow up: Response: No adverse reaction jd3 18:20 Drug: amLODIPine 10 mg Route: PO; jd3 19:16 Follow up: Response: No adverse reaction jd3 Outcome: 19:41 Discharge ordered by . [facility] 19:52 Discharged to home ambulatory. rr5 19:52 Condition: stable 19:52 Discharge instructions given to patient, Instructed on discharge instructions, follow up and referral plans. medication usage, Demonstrated understanding of Prescriptions given X 2. 19:56 Patient left the ED. rr5 Signatures: Chacorta Cortez PA PA Concha Roberts am Teodoro Hallman RN RN jd3 Jed Feliz, RN RN rr5 Kevin Ibarra, RN RN ll1
[2020-09-09 20:05] VITALS: BP 171/98; O2SAT 100
[2020-09-09 20:07] VITALS: TEMP 98.5
== END 2020-09-09 19:56 | disposition home or self-care (01) ==
LOC: ER 17:35
DX: G51.0 Bell's palsy (principal); I10 Essential (primary) hypertension; E11.9 Type 2 diabetes mellitus without complications
CPT/HCPCS: 70450; 99283